=== PATIENT | female | born 1945 | race Caucasian/White ===

== ENCOUNTER 2019-04-17 02:15 | Emergency (ER) | payer OTHER ==
[~2019-04-17] VITALS: Ht 170.2 cm; Wt 77.0 kg
[~2019-04-17 02:15] MED LIST: ASPI-1182 PO; ATEN25TA PO; ATOR10TA84 PO; BUPR75 PO; CARB1CAP3 PO; DIGO-44 PO; ENTA200 PO; ESTR1VAG VG; HYDR-4061 PO; PARO10TA89 PO; RANI-662 PO
[2019-04-17] MEDS ORDERED: CARB1TAB42 PO (02:44)
[2019-04-17] MEDS ORDERED: ALPR0.5T8 PO (02:44)
[2019-04-17] MEDS ORDERED: PRAM0.258 PO (02:44)
[2019-04-17] MEDS ORDERED: TETRACAINE HCL/PF 0.5% 4 ML OPHTHALMIC SOLUTION OU ONE (02:45)
[2019-04-17] MEDS ORDERED: FLUORESCEIN SODIUM 1 MG STRIP ONE (02:47)
[2019-04-17] MEDS ORDERED: GENTAMICIN SULFATE 0.3% OPHTHALMIC SOLUTION 5 ML OS ONE (03:30)
[2019-04-17 04:37] VITALS: BP 144/68
== END 2019-04-17 04:46 | disposition home or self-care (01) ==
LOC: EMS 02:16
DX: H10.9 Unspecified conjunctivitis (principal); B01.9 Varicella without complication; I10 Essential (primary) hypertension; I48.91 Unspecified atrial fibrillation; F32.9 Major depressive disorder, single episode, unspecified